=== PATIENT | female | born 1990 | race Asian ===

== ENCOUNTER 2017-02-13 22:15 | Emergency (ER) | payer MEDICAID ==
[2017-02-14] MEDS ORDERED: Bacitracin pkt 1 gm Pkt TP ONE (00:50)
--- NOTE | 2017-03-02 00:08 | ER Physician Documentation ---
DATE OF SERVICE: 02/13/2017 ED PHYSICIAN DOCUMENTATION CHIEF COMPLAINT: Left foot laceration. HISTORY OF PRESENT ILLNESS: A 26-year-old female had a laceration to her left fourth toe when she was stepping on a broken glass a few hours ago. The laceration did not affect the range of motion of her left fourth toe. ALLERGIES: No known drug allergies. REVIEW OF SYSTEMS: GENERAL/CONSTITUTIONAL: No fever. SKIN: Skin lesions. HEAD: No headache. EYES: No loss of vision. ENT: No earache. NECK: No neck pain. CARDIOVASCULAR: No chest pain. PULMONARY: No shortness of breath. GASTROINTESTINAL: No nausea. PSYCHIATRIC: No prior psych history. PAST MEDICAL HISTORY: No significant medical history. SOCIAL HISTORY: Smoke cigarettes someday. Occasionally drink alcohol. No drug use. PHYSICAL EXAMINATION: GENERAL AND CONSTITUTIONAL: Awake. HEENT: Head is atraumatic. Eyes: Pupils equal, round, reactive to light. NECK: No nuchal rigidity. RESPIRATORY: Clear to auscultation. CARDIOVASCULAR: Regular rate and rhythm. No murmur, gallop, rubs. Normal S1, S2. GASTROINTESTINAL: No tenderness, rebounding or guarding. EXTREMITIES: Left fourth toe plantar laceration near MTP joint, 3 cm in length. The depth of the laceration was to subcutaneous level. Range of motion of the MTP joint appears to be intact. GENERAL ASSESSMENT: Left fourth toe laceration. PLAN: Toradol 30 mg IM. Laceration repair. Keflex 500 mg t.i.d. for 7 days. Suture removal in 10-14 days. LACERATION LOCATION: Left fourth toe, plantar laceration. LACERATION TYPE: Simple. WOUND LENGTH: 3 cm. PREP/IRRIGATION: Normal saline, hydrogen peroxide and Betadine. COMMENTS: After local anesthesia with 1% lidocaine was achieved, 3 horizontal mattress sutures with 4-0 Prolene were placed. The patient tolerated the procedure well. The patient was discharged home and will follow up with regular doctor for suture removal. JOB# [id number]
== END 2017-02-14 01:15 | disposition home or self-care (01) ==
LOC: ER 22:15
DX: S91.115A Laceration without foreign body of left lesser toe(s) without damage to nail, initial encounter (principal); F17.210 Nicotine dependence, cigarettes, uncomplicated; W22.8XXA Striking against or struck by other objects, initial encounter; Y93.89 Activity, other specified; Y92.89 Other specified places as the place of occurrence of the external cause; Y99.8 Other external cause status
CPT/HCPCS: 99283; 12002; J1885; Z7502; Z7610